=== PATIENT | female | born 1960 | race Caucasian/White ===

== ENCOUNTER → 2017-03-12 | Emergency (ER) | payer BC ==
[~2017-03-12] VITALS: Ht 170.2 cm; Wt 83.9 kg
[~2017-03-12] MED LIST: ALLERGY25 M1; NORVASC5 MG; PAXIL10 MG/5 ML
== END | disposition home or self-care (01) ==
LOC: ER 10:43
DX: K52.9 Noninfective gastroenteritis and colitis, unspecified (principal)